=== PATIENT | female | born 1995 | race Caucasian/White ===

== ENCOUNTER → 2023-11-28 | Outpatient (CLI) | payer OTHER, SELFPAY ==
[2023-12-04 07:42] LABS: HPV Reflexed? NOT INDICATED
== END | disposition home or self-care (01) ==
LOC: LABSPEC 15:55
PROVIDERS: Referring Provider Registered Nurse; Visit Provider Registered Nurse
DX: Z12.4 Encounter for screening for malignant neoplasm of cervix (principal)
CPT/HCPCS: 88175; G0145

== ENCOUNTER → 2024-02-19 | Outpatient (CLI) | payer OTHER, SELFPAY ==
[2024-02-23 20:08] LABS: Chlamydia By Nucleic Acid AMP Negative (Negative); Gonococcus By Nucleic Acid AMP Negative (Negative)
== END | disposition home or self-care (01) ==
LOC: LABSPEC 16:40
PROVIDERS: Referring Provider Obstetrics & Gynecology; Visit Provider Obstetrics & Gynecology
DX: O26.899 Other specified pregnancy related conditions, unspecified trimester (principal); N89.8 Other specified noninflammatory disorders of vagina; O09.91 Supervision of high risk pregnancy, unspecified, first trimester; Z3A.00 Weeks of gestation of pregnancy not specified; O99.891 Other specified diseases and conditions complicating pregnancy
CPT/HCPCS: 87070; 87205; 87491; 87591

== ENCOUNTER → 2024-02-26 | Outpatient (CLI) | payer OTHER, SELFPAY ==
[2024-03-01 20:08] LABS: Chlamydia By Nucleic Acid AMP Negative (Negative); Gonococcus By Nucleic Acid AMP Negative (Negative)
== END | disposition home or self-care (01) ==
LOC: LABSPEC 13:33
PROVIDERS: Referring Provider Advanced Practice Midwife; Visit Provider Advanced Practice Midwife
DX: Z34.90 Encounter for supervision of normal pregnancy, unspecified, unspecified trimester (principal); Z3A.00 Weeks of gestation of pregnancy not specified
CPT/HCPCS: 87086; 87491; 87591

== ENCOUNTER → 2024-03-24 | Outpatient (CLI) | payer OTHER, SELFPAY ==
[2024-03-24 16:26] LABS: Absolute Lymphocyte Count 2.44 X10^3/uL (0.83-4.51); Absolute Neutrophil Count 7.9 X10^3/uL (2.0-7.7); Basophil# 0.02 X10^3/uL; Basophil% 0.2 % (0-1); Eosinophil# 0.09 X10^3/uL; Eosinophils% 0.8 % (0-5); Hematocrit 38.9 % (37-47); Hemoglobin 13.1 g/dL (12.0-15.0); Lymphocyte # 2.44 X10^3/ul (0.83-4.51); Lymphocyte % 22.1 % (19-41); Mean Corp Hgb Conc 33.7 g/dL (32-36); Mean Corpuscular Hgb 28.7 pg (27.0-32.0); Mean Corpuscular Volume 85.3 fL (81-99); Mean Platelet Vol. 10.3 fl (6.2-12.0); Monocyte# 0.57 X10^3/uL; Monocyte% 5.2 % (0-10); NRBC Flagged by Analyzer 0 % (0-5); Neutrophil # 7.86 X10^3/uL (2.7-7.7); Neutrophil % 71.2 % (47-70); Platelet Count 295 K/mm3 (150-450); RBC Distribution Width CV 12.9 % (11.6-14.6); Red Blood Count 4.56 M/mm3 (4.2-5.4)
[2024-03-24 17:14] LABS: HIV - WCH Non-Reactive (Nonreactive); Hepatitis B Surface Antigen Non-Reactive (Nonreactive); Hepatitis C Antibody Non-Reactive (Nonreactive); Rubella IgG Reactive (Nonreactive); Syphilis Antibodies Non-reactive
== END | disposition home or self-care (01) ==
LOC: BWCLAB 15:49
PROVIDERS: Advanced Practice Midwife; Referring Provider Obstetrics & Gynecology; Visit Provider Obstetrics & Gynecology
DX: O99.210 Obesity complicating pregnancy, unspecified trimester (principal)
CPT/HCPCS: 36415; 83036; 85025; 86703; 86762; 86780; 86803; 86850; 86900; 86901; 87340

== ENCOUNTER → 2024-06-08 | Outpatient (CLI) | payer BC, SELFPAY | END | disposition home or self-care (01) | LOC: LABSPEC 16:00 | PROVIDERS: Referring Provider Obstetrics & Gynecology; Visit Provider Obstetrics & Gynecology | DX: R35.0 Frequency of micturition (principal) | CPT/HCPCS: 87086 ==

== ENCOUNTER → 2024-07-06 | Outpatient (CLI) | payer BC, SELFPAY ==
[2024-07-06 17:05] LABS: Absolute Neutrophil Count 8.5 X10^3/uL (2.0-7.7); Basophil# 0.01 X10^3/uL; Basophil% 0.1 % (0-1); Eosinophil# 0.04 X10^3/uL; Eosinophils% 0.4 % (0-5); Hemoglobin 11.3 g/dL (12.0-15.0); Lymphocyte % 18.6 % (19-41); Mean Corp Hgb Conc 34.2 g/dL (32-36); Mean Corpuscular Hgb 29.3 pg (27.0-32.0); Mean Corpuscular Volume 85.5 fL (81-99); Monocyte# 0.62 X10^3/uL; Monocyte% 5.5 % (0-10); NRBC Flagged by Analyzer 0 % (0-5); Neutrophil # 8.49 X10^3/uL (2.7-7.7); Neutrophil % 74.9 % (47-70); Platelet Count 357 K/mm3 (150-450); RBC Distribution Width CV 12.8 % (11.6-14.6); RBC Distribution Width SD 39.8 fl (35.1-43.9); Red Blood Count 3.86 M/mm3 (4.2-5.4); White Blood Count 11.3 K/mm3 (4.4-11.0)
[2024-07-06 18:04] LABS: Syphilis Antibodies Nonreactive (Nonreactive)
[2024-07-06 18:29] LABS: Glucose Challenge Gest 1H 50g 127 mg/dL (70-140); HIV Nonreactive (Nonreactive)
== END | disposition home or self-care (01) ==
LOC: BWCLAB 15:28
PROVIDERS: Referring Provider Obstetrics & Gynecology; Visit Provider Obstetrics & Gynecology
DX: Z34.90 Encounter for supervision of normal pregnancy, unspecified, unspecified trimester (principal); Z13.1 Encounter for screening for diabetes mellitus
CPT/HCPCS: 36415; 82950; 85025; 86703; 86780

== ENCOUNTER 2024-08-19 14:21 | Outpatient (CLI) | payer BC, SELFPAY ==
[2024-08-19 14:39] LABS: Absolute Lymphocyte Count 2.54 X10^3/uL (0.83-4.51); Absolute Neutrophil Count 6.2 X10^3/uL (2.0-7.7); Basophil# 0.03 X10^3/uL; Basophil% 0.3 % (0-1); Eosinophil# 0.16 X10^3/uL; Eosinophils% 1.7 % (0-5); Hematocrit 34.2 % (37-47); Hemoglobin 11.3 g/dL (12.0-15.0); Lymphocyte # 2.54 X10^3/ul (0.83-4.51); Lymphocyte % 26.7 % (19-41); Mean Corpuscular Hgb 26.8 pg (27.0-32.0); Mean Platelet Vol. 10.1 fl (6.2-12.0); Monocyte# 0.48 X10^3/uL; NRBC Flagged by Analyzer 0 % (0-5); Neutrophil # 6.23 X10^3/uL (2.7-7.7); Neutrophil % 65.5 % (47-70); Platelet Count 359 K/mm3 (150-450); RBC Distribution Width CV 13.1 % (11.6-14.6); RBC Distribution Width SD 36.8 fl (35.1-43.9); Red Blood Count 4.22 M/mm3 (4.2-5.4); White Blood Count 9.5 K/mm3 (4.4-11.0)
[2024-08-19 15:15] VITALS: BP 134/77; PULSE 85; BMI 34.8
[2024-08-19 15:20] VITALS: RESP 16; TEMP 37
[2024-08-19] MEDS: Betamethasone/Betamethasone 30 MG/5 ML Vial 12 MG IM (15:24)
[2024-08-19] MEDS: Acetaminophen 500 MG Tablet 1000 MG PO (15:25)
[2024-08-19 15:30] VITALS: BP 132/78; PULSE 85
[2024-08-19 15:33] LABS: Protein, Urine (Random) 18.3 mg/dL (0.0-12.0); Protein:Creat Ratio 176 mg/g CRE (0-200)
[2024-08-19 15:34] LABS: ALB/GLOB Ratio 0.9 RATIO (0.9-2.4); AST(SGOT) 30 U/L (<=31); Alanine Aminotransfer ALT/SGPT 32 U/L (<=34); Alkaline Phosphatase 155 U/L (35-104); Anion Gap 12 (5-15); BUN 7 mg/dL (4-19); BUN/Creat Ratio 9.8 RATIO (10-20); Calcium,Total 8.7 mg/dL (7.6-11.0); Carbon Dioxide 19.3 mmol/L (21.0-32.0); Chloride 105 mmol/L (98-108); Creatinine, Serum 0.68 mg/dL (0.70-1.20); EST Glomerular Filtration Rate 121 (>60); Estimated Creatinine Clearance 144.11 ml/min (50-250); Globulin 3.3 g/dL (2.2-4.2); Glucose 102 mg/dL (70-99); Potassium 3.5 mmol/L (3.3-5.1); Protein, Total 6.3 g/dL (5.9-8.4); Sodium Level 136 mmol/L (133-145); Total Bilirubin 0.17 mg/dL (0.00-1.30)
[2024-08-19 15:45] VITALS: BP 123/73; PULSE 77
[2024-08-19 16:00] VITALS: BP 125/72; PULSE 85
--- NOTE | 2024-08-19 16:08 | OB.TRI.PN ---
Progress Notes Date of Service: 08/19/24 Progress Note: Patient presents for triage evaluation secondary to elevated bps FHT: 150 Moderate variability reactive no decelerations category I tracing [place]: no regular Contractions Assessment and plan: 33 weeks elevate dbps and headache- resolved with tylenol and bps repeat WNL and labs WNL,celestone given Reactive NST, reassuring maternal and status patient discharged to home to follow-up tomorrow for repea tsteroids. See problem list details for additional plan information. Laboratory Studies: Laboratory Tests 08/19/24 08/19/24 Range/Units 14:33 14:22 WBC 9.5 (4.4-11.0) K/mm3 RBC 4.22 (4.2-5.4) M/mm3 Hgb 11.3 L (12.0-15.0) g/dL Hct 34.2 L (37-47) % MCV 81.0 (81-99) fL MCH 26.8 L (27.0-32.0) pg MCHC 33.0 (32-36) g/dL RDW Std Deviation 36.8 (35.1-43.9) fl RDW Coeff of [place] 13.1 (11.6-14.6) % Plt Count 359 (150-450) K/mm3 MPV 10.1 (6.2-12.0) fl Immature Gran % (Auto) 0.800 (0.0-0.9) % Neut % (Auto) 65.5 (47-70) % Lymph % (Auto) 26.7 (19-41) % [place] % (Auto) 5.0 (0-10) % Eos % (Auto) 1.7 (0-5) % Baso % (Auto) 0.3 (0-1) % Absolute Neuts (auto) 6.2 (2.0-7.7) X10^3/uL Absolute Lymphs (auto) 2.54 (0.83-4.51) X10^3/uL Nucleated RBC % 0 (0-5) % Sodium 136 (133-145) mmol/L Potassium 3.5 (3.3-5.1) mmol/L Chloride 105 (98-108) mmol/L Carbon Dioxide 19.3 L (21.0-32.0) mmol/L Anion Gap 12 (5-15) BUN 7 (4-19) mg/dL Creatinine 0.68 L (0.70-1.20) mg/dL Estim Creat Clear Calc 144.11 (50-250) ml/min Est GFR (MDRD) Non-Af 121 (>60) BUN/Creatinine Ratio 9.8 L (10-20) RATIO Glucose 102 H (70-99) mg/dL Calcium 8.7 (7.6-11.0) mg/dL Total Bilirubin 0.17 (0.00-1.30) mg/dL AST 30 (<=31) U/L ALT 32 (<=34) U/L Alkaline Phosphatase 155 H (35-104) U/L Total Protein 6.3 (5.9-8.4) g/dL Albumin 3.0 L (3.5-5.0) g/dL Globulin 3.3 (2.2-4.2) g/dL Albumin/Globulin Ratio 0.9 (0.9-2.4) RATIO U Random Total Protein 18.3 H (0.0-12.0) mg/dL Urine Creatinine 104.00 (28.00-217.00) mg/dL Protein/Creatinin Ratio 176 (0-200) mg/g CRE Charges/Coding Procedures Urinary/Genital 52xxx-59xxx: [id number] non-stress test Interp Assessment & Plan (1) Elevated blood pressure affecting in third trimester, antepartum: COMMENT: celestone given, labs WNL, repeat bps normal in triage headache resolved. repeat celestone 08/20 will be given.
== END 2024-08-19 16:18 | disposition home or self-care (01) ==
LOC: BWCLAB 14:26 → WPOUT 14:57 → WP 14:58
PROVIDERS: Referring Provider Nurse Practitioner Women's Health; Visit Provider Obstetrics & Gynecology
DX: O26.893 Other specified pregnancy related conditions, third trimester (principal); R03.0 Elevated blood-pressure reading, without diagnosis of hypertension; R51.9 Headache, unspecified; Z3A.33 33 weeks gestation of pregnancy
CPT/HCPCS: 36415; 59025; 59050; 80053; 82570; 84156; 85025; 99221; G0378; J0702

== ENCOUNTER 2024-08-20 15:20 | Outpatient (CLI) | payer BC, SELFPAY ==
[2024-08-20 15:31] VITALS: BMI 35.2
[2024-08-20 15:45] VITALS: BP 126/73; PULSE 85
[2024-08-20] MEDS: Betamethasone/Betamethasone 30 MG/5 ML Vial 12 MG IM (15:46)
--- NOTE | 2024-08-20 20:15 | OB.TRI.HP_ITS ---
HPI - General General Date of Admission: 08/20/24 Date of Service: 09/19/24 HPI Narrative TARAN RUBIO, is a 29 y/o @ 33 weeks 5 days who presents to L&D for a celestone injection only. NST was performed yesterday. This is being given for headache and suspicion for possible pih vs pre-e. BP today is normal. Maternal Data Information MARIIA Calculator Estimated Delivery Date Method Current WG Current Estimate 10/03/24 Ultrasound #1 35w 4d Other Estimates 09/24/24 LMP (Certain) 36w 6d PFSH PFSH Medical History Family planning counseling Home Medications ?Medication ?Instructions ?Recorded ?Last Taken ?Type docosahexaenoic acid 200 mg 1 mg PO DAILY 02/19/24 11:30 History capsule ( DHA) 1 mg doxylamine succinate 25 mg tablet 25 mg PO QHS PRN sle ep 02/19/24 08/18/24 23:00 History (Unisom (doxylamine)) 25 mg famotidine 20 mg tablet (Pepcid) 20 mg PO DAILY #30 ta bs 06/08/24 08/19/24 09:00 Rx 20 mg promethazine 12.5 mg tablet 12.5 mg PO Q6H PRN nausea and 07/06/24 08/19/24 09:00 Rx vomiting #90 tabs 12.5 mg Allergy/AdvReac Type Severity Reaction Status Date / Time latex Allergy Intermediate Rash Verified 08/19/24 15:16 oxycodone (From Percocet) Allergy Mild Vomiting Verified 08/19/24 15:16 Family History Grandmother Myocardial infarction Diabetes Grandfather Diabetes Surgical History Hx of wisdom tooth extraction Social History adopted: No household members: spouse current occupational status: unemployed current occupational exposures/hazards: No pets and animals: Yes pets and animals: dog(s), guinea pig(s) and other details: bunny history of recent travel: Yes ([place] - Dec 2023, [place] - January 2024) out of state: Yes out of country: No sexually active: Yes Smoking Status: Never smoker alcohol intake: current alcohol intake frequency: holidays/special occasions only details: Not while substance use type: does not use well-balanced diet: daily or most days caffeine: Yes Type: coffee Number of servings: 1 eating out: 1-3 times/week during the past year weight has: increased > 10 lbs what type of physical activity do you participate in: none omar/moravian: Confucianism seatbelt use: always do you feel safe at home: Yes additional social history: : Raul Winters: Floater History 1 Elective abortions Hx Para 0 Spontaneous abortions Hx # Term Pregnancies Ectopic pregnancies Hx # Pregnancies Multiple births # of living children 0 Visit Details Expected Delivery Route/Plan Labor Preferences- CB/BF classes: enc labor support person: Raul labor intervention preferences: [] pain management options preferred: [] cut cord/dad catch: [] : yes PP control planned: [] discussed possible routes of delivery and associated risks: [] special requests: [] Plans Covid status: [] Flu vaccine: [] Tdap vaccine: [] Rhogam: [] LARC form signed: yes Problem list reviewed and updated with the most current plan of care details and appropriate orders placed. Relevant counseling for the gestational age provided. Continue routine care and follow up unless otherwise noted in visit notes/problem list details OB Flowsheet Initial Weight: Not Recorded Date -?-?-?-?-?-?-?-?-?-?-?-?- EGA Weight BP Urine Prot -?-?-?-?-?-?-?-?-?-?-?-?- Glucose FHR FuHt Pres Dilation -?-?-?-?-?-?-?-?-?-?-?-?- Effaced St Visit Note 02/26/24 -?-?-?-?-?-?-?-?-?-?-?-?- 8w 4d 192 lb 124/77 -?-?-?-?-?-?-?-?-?-?-?-?- 175 -?-?-?-?-?-?-?-?-?-?-?-?- KW- CRL not cons with dates. MARIIA changed. undecided on NIPT 03/24/24 -?-?-?-?-?-?-?-?-?-?-?-?- 12w 3d 192 lb 8 oz 121/79 Nega tive -?-?-?-?-?-?-?-?-?-?-?-?- Negative 165 -?-?-?-?-?-?-?-?-?-?-?-?- JV- no lof, vagi nal bleeding, or cramping. no complaints other than gas and some residual nausea. no vomiting x 2 days. new ob labs today. declines NIPT. 04/15/24 -?-?-?-?-?-?-?-?-?-?-?-?- 15w 4d 193 lb 4 oz 115/72 Nega tive -?-?-?-?-?-?-?-?-?-?-?-?- Negative 155 -?-?-?-?-?-?-?-?--?-?-?-?- JV- still some g as and vomiting. recommend pepcid complete twice a day + gas x. anatomy scan JV- still some gas and vomit ing. recommend pepcid complete twice a day + gas x. anatomy scan ordered 05/13/24 -?-?-?-?-?-?-?-?-?-?-?-?- 19w 4d 203 lb 116/77 Negative -?-?-?-?-?-?-?-?-?-?-?-?- Negative 145 -?-?-?-?-?-?--?-?-?-?-?-?- KW- no vb/crampi ng. good fm. was in [facility] for headaches. Having a BOY! has US today. 06/08/24 -?-?-?-?-?-?-?-?-?-?-?-?- 23w 2d 207 lb 116/72 Negative -?-?-?-?-?-?-?-?-?-?-?-?- Negative 150 23 0 -?-?-?-?-?-?-?-?-?-?-?-?- SM- has some occ asional cramping, nothing regualr SM- has some occasional cram ping, nothing regualr. 3.2 cm cervical length. taking pepcid for heartburn, ordered script. SM- has some occasional cram ping, nothing regualr. 3.2 cm cervical length. taking pepcid for heartburn, ordered script. discussed increased anxiety symptoms, significant, has aditi on prozc in the past, will restart 07/06/24 -?-?-?-?-?-?-?-?-?-?-?-?- 27w 2d 208 lb 136/80 Negative -?-?-?-?-?-?-?-?-?-?-?-?- Negative 150 28 -?-?-?-?-?-?-?-?-?-?-?-?- SM- no vb lof go od fm no reuglar ctx questions answered 07/20/24 -?-?-?-?-?-?-?-?-?-?-?-?- 29w 2d 213 lb 8 oz 125/83 Nega tive -?-?-?-?-?-?-?-?-?-?-?-?- Negative 150 30 -?-?-?-?-?-?-?-?-?-?-?-?- KW- no vb/lof/ct x. good fm. [facility] -?-?-?-?-?-?-?-?-?-?-?-?- 31w 4d 218 lb 4 oz 130/82 Nega tive -?-?-?-?-?-?-?-?-?-?-?-?- Negative 152 31 -?-?-?-?-?-?-?-?-?-?-?-?- MH-No VB, LOF. G ood FM. Left hand numbness/enc wrist splint. Tdap 08/19/24 -?-?-?-?-?-?-?-?-?-?-?-?- 33w 4d 215 lb 130/92 Negative -?-?-?-?-?-?-?-?-?-?-?-?- Negative 143 33 -?-?-?-?-?-?-?-?-?-?-?-?- MH-No VB, LOF. G ood FM. Has headache today, some blurring of vision. -No VB, LOF. Good FM. Has headache today, some blurring of vision. To Assessment & Plan (1) Elevated blood pressure affecting in third trimester, antepartum: COMMENT: celestone given, labs WNL, repeat bps normal in triage headache resolved. repeat celestone 08/20 will be given. (2) Migraine without aura: QUALIFIERS: Status migrainosus presence: without status migrainosus Intractability: not intractable Qualified Code(s): G43.009 - Migraine without aura, not intractable, without status migrainosus (3) Obesity affecting : QUALIFIERS: Trimester: third trimester Obesity type affecting : unspecified obesity Qualified Code(s): O99.213 - Obesity complicating , third trimester COMMENT: BMI 30.7 - HgB A1C ordered with NOB labs (4) Supervision of normal : QUALIFIERS: Normal : normal first Trimester: third trimester Qualified Code(s): Z34.03 - Encounter for supervision of normal first , third trimester COMMENT: PRR, , MARIIA 10/03/24, : Raul (5) : QUALIFIERS: Weeks of gestation: 33 weeks Qualified Code(s): Z3A.33 - 33 weeks gestation of COMMENT: Discuss genetic/carrier testing, normal anatomy (6) Anxiety and depression: COMMENT: Stopped taking meds about 6mo ago, feeling increased anxiety since becoming . restart prozac (7) Vaginal bleeding affecting early : PLAN: Plan 2nd dose of celestone today then dc to home with close out patient follow up.
== END 2024-08-20 15:50 | disposition home or self-care (01) ==
LOC: WPOUT 15:26 → WP 15:28
PROVIDERS: Referring Provider Registered Nurse; Visit Provider Registered Nurse
DX: O46.93 Antepartum hemorrhage, unspecified, third trimester (principal); O26.893 Other specified pregnancy related conditions, third trimester; R03.0 Elevated blood-pressure reading, without diagnosis of hypertension; Z3A.33 33 weeks gestation of pregnancy; Z79.899 Other long term (current) drug therapy; O99.353 Diseases of the nervous system complicating pregnancy, third trimester; G43.909 Migraine, unspecified, not intractable, without status migrainosus; O99.213 Obesity complicating pregnancy, third trimester; E66.9 Obesity, unspecified
CPT/HCPCS: 96372; 99221; G0378; J0702

== ENCOUNTER → 2024-09-09 | Outpatient (CLI) | payer BC, SELFPAY ==
[2024-09-09 16:05] LABS: Absolute Lymphocyte Count 2.58 X10^3/uL (0.83-4.51); Absolute Neutrophil Count 7.9 X10^3/uL (2.0-7.7); Basophil# 0.03 X10^3/uL; Basophil% 0.3 % (0-1); Eosinophil# 0.29 X10^3/uL; Eosinophils% 2.5 % (0-5); Hematocrit 33.3 % (37-47); Hemoglobin 10.8 g/dL (12.0-15.0); Lymphocyte # 2.58 X10^3/ul (0.83-4.51); Lymphocyte % 22.2 % (19-41); Mean Corp Hgb Conc 32.4 g/dL (32-36); Mean Corpuscular Hgb 25.7 pg (27.0-32.0); Mean Corpuscular Volume 79.3 fL (81-99); Mean Platelet Vol. 10.7 fl (6.2-12.0); Monocyte# 0.76 X10^3/uL; Monocyte% 6.5 % (0-10); NRBC Flagged by Analyzer 0.3 % (0-5); Neutrophil # 7.85 X10^3/uL (2.7-7.7); Neutrophil % 67.6 % (47-70); Platelet Count 318 K/mm3 (150-450); RBC Distribution Width CV 13.9 % (11.6-14.6); RBC Distribution Width SD 39.3 fl (35.1-43.9); White Blood Count 11.6 K/mm3 (4.4-11.0)
[2024-09-09 16:35] LABS: Protein:Creat Ratio 296 mg/g CRE (0-200)
[2024-09-09 16:38] LABS: Uric Acid 4.6 mg/dL (2.6-6.0)
[2024-09-09 16:39] LABS: ALB/GLOB Ratio 1.1 RATIO (0.9-2.4); AST(SGOT) 24 U/L (<=31); Alanine Aminotransfer ALT/SGPT 16 U/L (<=34); Albumin, Serum 3.3 g/dL (3.5-5.0); Alkaline Phosphatase 191 U/L (35-104); Anion Gap 12 (5-15); BUN 7 mg/dL (4-19); BUN/Creat Ratio 11.5 RATIO (10-20); Calcium,Total 9.2 mg/dL (7.6-11.0); Carbon Dioxide 17.7 mmol/L (21.0-32.0); Chloride 106 mmol/L (98-108); Creatinine, Serum 0.59 mg/dL (0.70-1.20); EST Glomerular Filtration Rate 125 (>60); Globulin 3.1 g/dL (2.2-4.2); Glucose 108 mg/dL (70-99); Potassium 4.3 mmol/L (3.3-5.1); Protein, Total 6.4 g/dL (5.9-8.4); Sodium Level 135 mmol/L (133-145); Total Bilirubin < 0.15 mg/dL (0.00-1.30)
== END | disposition home or self-care (01) ==
PROVIDERS: Referring Provider Advanced Practice Midwife; Visit Provider Advanced Practice Midwife
DX: O16.3 Unspecified maternal hypertension, third trimester (principal); Z3A.36 36 weeks gestation of pregnancy
CPT/HCPCS: 36415; 80053; 82570; 84156; 84550; 85025; 87081

== ENCOUNTER → 2024-09-11 | Outpatient (CLI) | payer BC, SELFPAY ==
[2024-09-11 11:42] LABS: Creatinine, Serum 0.62 mg/dL (0.70-1.20); EST Glomerular Filtration Rate 123 (>60)
[2024-09-11 11:43] LABS: Creatinine Serum Creat 0.6 mg/dL (0.6-1.0)
[2024-09-11 11:59] LABS: Urine Protein (24 Hour) 15.8 mg/dL (<11.9)
[2024-09-11 12:02] LABS: 24 Hour Urine Protein 426.6 mg/24HR (<150 MG/24HR); 24HR. Urine Creatinine 1630.8 mg/24 hr (740.0-1540.0); Creatinine Clearance 183 ml/min (100-200)
[2024-09-11 12:03] LABS: 24HR. UA Prot. Total Volume 2700 mL
== END | disposition home or self-care (01) ==
PROVIDERS: PCP Family Medicine; Referring Provider Obstetrics & Gynecology; Visit Provider Obstetrics & Gynecology
DX: O16.3 Unspecified maternal hypertension, third trimester (principal); Z3A.00 Weeks of gestation of pregnancy not specified
CPT/HCPCS: 36415; 82565; 82570; 82575; 84156

== ENCOUNTER 2024-09-14 16:10 | Inpatient (IN) | payer BC, SELFPAY ==
[2024-08-20 15:45] VITALS: RESP 16; TEMP 36.6
[2024-09-14] VITALS (17 sets, daily range): BP systolic 127–146; BP diastolic 75–88; PULSE 76–104; RESP 16; TEMP 36.7–37.4; O2SAT 97–98; BMI 36.1
[2024-09-14 14:10] LABS: Protein, Urine (Random) 23.3 mg/dL (0.0-12.0); Protein:Creat Ratio 274 mg/g CRE (0-200)
[2024-09-14 14:52] LABS: Hematocrit 32.3 % (37-47); Hemoglobin 10.2 g/dL (12.0-15.0); Mean Corp Hgb Conc 31.6 g/dL (32-36); Mean Corpuscular Hgb 25.2 pg (27.0-32.0); Mean Platelet Vol. 10.6 fl (6.2-12.0); Platelet Count 335 K/mm3 (150-450); RBC Distribution Width CV 14.1 % (11.6-14.6); RBC Distribution Width SD 40.5 fl (35.1-43.9); Red Blood Count 4.04 M/mm3 (4.2-5.4); White Blood Count 12.6 K/mm3 (4.4-11.0)
[2024-09-14 15:27] LABS: AST(SGOT) 23 U/L (<=31); Alanine Aminotransfer ALT/SGPT 17 U/L (<=34); Creatinine, Serum 0.59 mg/dL (0.70-1.20); EST Glomerular Filtration Rate 125 (>60); Estimated Creatinine Clearance 169.29 ml/min (50-250); Uric Acid 4.8 mg/dL (2.6-6.0)
--- NOTE | 2024-09-14 16:26 | HP.PCM.OB_ITS ---
HPI - General General Date of Admission: 09/14/24 Date of Service: 09/14/24 HPI Narrative TARAN RUBIO, is a 29 F 37.2 weeks who presents to unit after BP check in office. Has been having headache for the last week and mildly elevated BPs today. Pre e labs normal but with neurologic sx decision made for induction Maternal Data Information MARIIA Calculator Estimated Delivery Date Method Current WG Current Estimate 10/03/24 Ultrasound #1 37w 2d Other Estimates 09/24/24 LMP (Certain) 38w 4d Final MARIIA: 10/03/24 Final MARIIA Source: US >20 weeks Gestational age: 37.2 PFSH PFSH Medical History Family planning counseling Home Medications ?Medication ?Instructions ?Recorded ?Last Taken ?Type docosahexaenoic acid 200 mg 1 mg PO DAILY 02/19/24 08:00 History capsule ( DHA) doxylamine succinate 25 mg tablet 25 mg PO QHS PRN sle ep 02/19/24 09/13/24 21:00 History (Unisom (doxylamine)) promethazine 12.5 mg tablet 12.5 mg PO Q6H PRN nausea and 07/06/24 09/14/24 08:00 Rx vomiting #90 tabs famotidine 20 mg tablet (Pepcid) 20 mg PO BID #60 tabs 09/02/24 09/14/24 08:00 Rx Allergy/AdvReac Type Severity Reaction Status Date / Time latex Allergy Intermediate Rash Verified 09/14/24 14:30 oxycodone (From Percocet) Allergy Mild Vomiting Verified 09/14/24 14:30 Family History Grandmother Myocardial infarction Diabetes Grandfather Diabetes Surgical History Hx of wisdom tooth extraction Social History adopted: No household members: spouse current occupational status: unemployed current occupational exposures/hazards: No pets and animals: Yes pets and animals: dog(s), guinea pig(s) and other details: bunny history of recent travel: Yes ([place] - Dec 2023, [place] - January 2024) out of state: Yes out of country: No sexually active: Yes Smoking Status: Never smoker alcohol intake: current alcohol intake frequency: holidays/special occasions only details: Not while substance use type: does not use well-balanced diet: daily or most days caffeine: Yes Type: coffee Number of servings: 1 eating out: 1-3 times/week during the past year weight has: increased > 10 lbs what type of physical activity do you participate in: none omar/nondenominational: Cheondoism seatbelt use: always do you feel safe at home: Yes additional social history: : Raul Winters: Floater History 1 Elective abortions Hx Para 0 Spontaneous abortions Hx # Term Pregnancies Ectopic pregnancies Hx # Pregnancies Multiple births # of living children 0 Visit Details Expected Delivery Route/Plan Labor Preferences- CB/BF classes: enc labor support person: Raul labor intervention preferences: [] pain management options preferred: [] cut cord/dad catch: [] : yes PP control planned: [] discussed possible routes of delivery and associated risks: [] special requests: [] Plans Covid status: [] Flu vaccine: [] Tdap vaccine: [] Rhogam: [] LARC form signed: yes Problem list reviewed and updated with the most current plan of care details and appropriate orders placed. Relevant counseling for the gestational age provided. Continue routine care and follow up unless otherwise noted in visit notes/problem list details OB Flowsheet Initial Weight: Not Recorded Date -?-?-?-?-?-?-?-?-?-?-?-?- EGA Weight BP Urine Prot -?-?-?-?-?-?-?-?-?-?-?-?- Glucose FHR FuHt Pres Dilation -?-?-?-?-?-?-?-?-?-?-?-?- Effaced St Visit Note 02/26/24 -?-?-?-?-?-?-?-?-?-?-?-?- 8w 4d 192 lb 124/77 -?-?-?-?-?-?-?-?-?-?-?-?- 175 -?-?-?-?-?-?-?-?-?-?-?-?- KW- CRL not cons with dates. MARIIA changed. undecided on NIPT 03/24/24 -?-?-?-?-?-?-?-?-?-?-?-?- 12w 3d 192 lb 8 oz 121/79 Nega tive -?-?-?-?-?-?-?-?-?-?-?-?- Negative 165 -?-?-?-?-?-?-?-?-?-?-?-?- JV- no lof, vagi nal bleeding, or cramping. no complaints other than gas and some residual nausea. no vomiting x 2 days. new ob labs today. declines NIPT. 04/15/24 -?-?-?-?-?-?-?-?-?-?-?-?- 15w 4d 193 lb 4 oz 115/72 Nega tive -?-?-?-?-?-?-?-?-?-?-?-?- Negative 155 -?-?-?-?-?-?-?-?-?-?-?-?- JV- still some g as and vomiting. recommend pepcid complete twice a day + gas x. anatomy scan JV- still some gas and vomit ing. recommend pepcid complete twice a day + gas x. anatomy scan ordered 05/13/24 -?-?-?-?-?-?-?-?-?-?-?-?- 19w 4d 203 lb 116/77 Negative -?-?-?-?-?-?-?-?-?-?-?-?- Negative 145 -?-?-?-?-?-?-?-?-?-?-?-?- KW- no vb/crampi ng. good fm. was in [facility] for headaches. Having a BOY! has US today. 06/08/24 -?-?-?-?-?-?-?-?-?-?-?-?- 23w 2d 207 lb 116/72 Negative -?-?-?-?-?-?-?-?-?-?-?-?- Negative 150 23 0 -?-?-?-?-?-?-?-?-?-?-?-?- SM- has some occ asional cramping, nothing regualr SM- has some occasional cram ping, nothing regualr. 3.2 cm cervical length. taking pepcid for heartburn, ordered script. SM- has some occasional cram ping, nothing regualr. 3.2 cm cervical length. taking pepcid for heartburn, ordered script. discussed increased anxiety symptoms, significant, has aditi on prozc in the past, will restart 07/06/24 -?-?-?-?-?-?-?-?-?-?-?-?- 27w 2d 208 lb 136/80 Negative -?-?-?-?-?-?-?-?-?-?-?-?- Negative 150 28 -?-?-?-?-?-?-?-?-?-?-?-?- SM- no vb lof go od fm no reuglar ctx questions answered 07/20/24 -?-?-?-?-?-?-?-?-?-?-?-?- 29w 2d 213 lb 8 oz 125/83 Nega tive -?-?-?-?-?-?-?-?-?-?-?-?- Negative 150 30 -?-?-?-?-?-?-?-?-?-?-?-?- KW- no vb/lof/ct x. good fm. considering Tdap. larc today 08/05/24 -?-?-?-?-?-?-?-?-?-?-?-?- 31w 4d 218 lb 4 oz 130/82 Nega tive -?-?-?-?-?-?-?-?-?-?-?-?- Negative 152 31 -?-?-?-?-?-?-?-?-?-?-?-?- MH-No VB, LOF. G ood FM. Left hand numbness/enc wrist splint. Tdap 08/19/24 -?-?-?-?-?-?-?-?-?-?-?-?- 33w 4d 215 lb 130/92 Negative -?-?-?-?-?-?-?-?-?-?-?-?- Negative 143 33 -?-?-?-?-?-?-?-?-?-?-?-?- MH-No VB, LOF. G ood FM. Has headache today, some blurring of vision. MH-No VB, LOF. Good FM. Has headache today, some blurring of vision. To WP 09/02/24 -?-?-?-?-?-?-?-?-?-?-?-?- 35w 4d 219 lb 134/86 Trace -?-?-?-?-?-?-?-?-?-?-?-?- Negative 151 34.5 Cephalic -?--?-?-?-?-?-?-?-?-?-?-?- JV- no lof, vagi nal bleeding, or dec fm. on and off cramping. needs new pepcid script sent to pharmacy. 09/09/24 -?-?-?-?-?-?-?-?-?-?-?-?- 36w 4d 221 lb 8 oz 156/88 126/85 Negative -?-?-?-?-?-?-?-?-?-?-?-?- Negative 160 37 Cephalic 3 .5 -?-?-?-?-?-?-?-?-?-?-?-?- 60 -1 KW- no vb/ lof/ctx. good fm. GBS today. feeling very anxious today. KW- no vb/lof/ctx. good fm. GBS today. feeling very anxious today. stat labs for elevated BP NST FHR Rate Baby A Baseline: 150 Variability:: Moderate Accelerations:: 15 x 15 Decelerations:: None NST Reactive:: Yes FHR Category:: Category I Uterine Activity:: irregular ROS Constitutional Constitutional: Denies change in weight, fatigue, fever(s), headache(s), poor appetite or weakness Eyes Eyes: Denies blurry vision, change in vision, floaters, seeing flashes or spots in vision ENT HEENT: Denies dizziness, headache(s), loss taste/smell or sore throat Cardiovascular Cardiovascular: Denies chest pain, dizziness, dyspnea, irregular heart rhythm, lightheadedness, palpitations or rapid heart rate Respiratory/Chest Respiratory/Chest: Denies change in mental status, chest tightness, cough, dyspnea or breast pain Gastrointestinal Gastrointestinal: Denies anorexia, chewing difficulty, constipation, diarrhea or weight changes Genitourinary Genitourinary: Denies difficulty urinating, dysuria, flank pain, genital pain, urinary frequency or urinary urgency Musculoskeletal Musculoskeletal: Denies back pain, difficulty walking, extremity pain, joint pain, muscle cramps or muscle weakness Integumentary Integumentary: Denies lesions or unusual bruising Neurologic Neurologic: Denies abnormal movements, abnormal speech, dizziness, numbness, seizure-like activity, syncope or weakness Psychiatric Psychiatric: Denies behavioral changes, change in appetite, confusion, depression, homicidal ideation, suicidal ideation or suicidal thoughts Endocrine Endocrinology: Denies excessive sweating, polydipsia or polyuria Hematologic/Lymphatic Hematologic/Lymphatic: Denies anemia Allergic/Immunologic Allergic/Immunologic: Denies itchy eyes, lip swelling, throat swelling, tongue swelling or wheezing Vital Signs Vital Signs Vital Signs: 09/14/24 14:29 09/14/24 14:29 09/14/24 14:29 Pulse Rate 95 Respiratory Rate 16 Blood Pressure 140/85 H BP Systolic 140 BP Diastolic 85 Pulse Ox 09/14/24 14:29 09/14/24 14:44 09/14/24 14:44 Pulse Rate 90 Respiratory Rate Blood Pressure 131/79 H BP Systolic 131 BP Diastolic 79 Pulse Ox 98 09/14/24 15:01 09/14/24 15:01 09/14/24 15:15 Pulse Rate 96 Respiratory Rate Blood Pressure 132/75 H 139/83 H BP Systolic 132 139 BP Diastolic 75 83 Pulse Ox 09/14/24 15:15 09/14/24 15:30 09/14/24 15:30 Pulse Rate 94 91 Respiratory Rate Blood Pressure 134/80 H BP Systolic 134 BP Diastolic 80 Pulse Ox 09/14/24 15:45 09/14/24 15:45 09/14/24 16:00 Pulse Rate 86 Respiratory Rate Blood Pressure 137/84 H 140/83 H BP Systolic 137 140 BP Diastolic 84 83 Pulse Ox 09/14/24 16:00 Pulse Rate 85 Respiratory Rate Blood Pressure BP Systolic BP Diastolic Pulse Ox Weight Weight: 224 lb Body Mass Index (BMI) 36.1 Physical Exam Const alert, oriented x3 and no apparent distress General Appearance: cooperative Orientation / Consciousness: awake HEENT normocephalic Neck full ROM Lymph Lymphatic: no lymphadenopathy noted Chest inspection of chest normal Resp normal respiratory effort and normal air movement Effort and Inspection: able to speak in complete sentences and symmetric chest movement GI soft to palpation and non-tender Inspection: gravid Palpation: soft; Negative for tender external exam normal Manual OB Exam: dilated 4, effaced 60 and station -2 Back/Spine normal to inspection Extremity normal to inspection and full ROM Skin no rashes or lesions noted Psych mental status grossly normal Appearance: grossly normal Speech: normal speech Labs Labs Labs: Blood Type O POSITIVE Antibody Screen NEGATIVE Hct 32.3 % (37-47) L Hgb 10.2 g/dL (12.0-15.0) L Syphilis Total Ab Nonreactive (Nonreactive) Rubella IgG Antibody Reactive (Nonreactive) Hep Bs Antigen Non-Reactive (Nonreactive) Hepatitis C Antibody Non-Reactive (Nonreactive) Chlamydia DNA ([facility]) Negative (Negative) N.gonorrhoeae DNA ([facility]) Negative (Negative) HIV 1&2 Antibody Nonreactive (Nonreactive) Glucose 1 Hr 50 gm 127 mg/dL (70-140) Assessment & Plan (1) Encounter for induction of labor: COMMENT: Pre eclampsia PLAN: Patient presents IOL, plan management for with pitocin/AROM. Pain management: plans epidural. GBS negative. Management of any complications: see list I have reviewed the [facility] and made any clinically relevant updates Dr Mata aware of assessment, plan and admission. agrees with above (2) Proteinuria affecting : COMMENT: wkly NST & Pre e labs, growth US, home BP monitoring, (3) Elevated blood pressure affecting in third trimester, antepartum: COMMENT: celestone given, labs WNL, repeat bps normal in triage headache resolved. repeat celestone 08/20 will be given. (4) Migraine without aura: QUALIFIERS: Status migrainosus presence: without status migrainosus Intractability: not intractable Qualified Code(s): G43.009 - Migraine without aura, not intractable, without status migrainosus (5) Obesity affecting : QUALIFIERS: Trimester: third trimester Obesity type affecting : unspecified obesity Qualified Code(s): O99.213 - Obesity complicating , third trimester COMMENT: BMI 30.7 - HgB A1C ordered with NOB labs (6) Supervision of normal : QUALIFIERS: Normal : normal first Trimester: third trimester Qualified Code(s): Z34.03 - Encounter for supervision of normal first , third trimester COMMENT: PRR, , MARIIA 10/03/24, : Raul (7) : QUALIFIERS: Weeks of gestation: 36 weeks Qualified Code(s): Z3A.36 - 36 weeks gestation of COMMENT: GBS neg, Discuss genetic/carrier testing, normal anatomy (8) Anxiety and depression: COMMENT: Stopped taking meds about 6mo ago, feeling increased anxiety since becoming . restart prozac (9) Vaginal bleeding affecting early : Charges/Coding Multi Select Codes Urinary/Genital Urinary/Genital CPT Codes: No Charge
[2024-09-14] MEDS: Lactated Ringers 1,000 ML 50 ML IV (17:25)
[2024-09-14 18:18] LABS: Syphilis Antibodies Nonreactive (Nonreactive)
[2024-09-14] MEDS: Oxytocin 15 Units/NS 250ml 15 UNITS/250 ML IV.SOLN 2 UNITS IV (19:56)
[2024-09-14] MEDS: 0.9% Saline Lock 10 ML Syringe IV (20:05)
[2024-09-14] MEDS: Ondansetron 4 MG/2 ML Vial IV (20:06)
[2024-09-14] MEDS: LACTATED RINGERS 500 ML 999 ML IV (22:01)
[2024-09-14] MEDS: Mag Hydrox/Al Hydrox/Simeth 30 ML UDC PO (23:04)
[2024-09-15] VITALS (39 sets, daily range): BP systolic 115–142; BP diastolic 65–86; PULSE 72–107; RESP 13–18; TEMP 36.4–37.5; O2SAT 96–100
[2024-09-15] MEDS: Ondansetron 4 MG/2 ML Vial IV ×2 (00:55→06:15)
[2024-09-15] MEDS: 0.9% Saline Lock 10 ML Syringe IV ×3 (00:55→06:15)
[2024-09-15] MEDS: proCHLORPERazine 10 MG/2 ML Vial IV (03:20)
[2024-09-15] MEDS: LACTATED RINGERS 500 ML 999 ML IV (06:32)
[2024-09-15] MEDS: fentaNYL-bupivacaine (epidural) 100 ML BAG EPIDURAL ×2 (07:16→12:22)
--- NOTE | 2024-09-15 07:58 | PCM.PN.BLA ---
Progress Note patient is resting well with epidural. She consents to AROM. current tracing: FHT: Moderate variability reactive no decelerations category I tracing [place]: q 2-4 min Contractions cx: 6/80/-1, blood tinged fluid present. A/P: PIH with a headache without proteinuria continue pitocin
[2024-09-15] MEDS: Lactated Ringers 1,000 ML 200 ML IV (08:24)
--- NOTE | 2024-09-15 12:55 | EX.PCM.OBVAG ---
Assessment & Plan (1) Encounter for induction of labor: COMMENT: Pre eclampsia (2) Proteinuria affecting : COMMENT: wkly NST & Pre e labs, growth US, home BP monitoring, (3) Elevated blood pressure affecting in third trimester, antepartum: COMMENT: celestone given, labs WNL, repeat bps normal in triage headache resolved. repeat celestone 08/20 will be given. (4) Migraine without aura: QUALIFIERS: Status migrainosus presence: without status migrainosus Intractability: not intractable Qualified Code(s): G43.009 - Migraine without aura, not intractable, without status migrainosus (5) Obesity affecting : QUALIFIERS: Trimester: third trimester Obesity type affecting : unspecified obesity Qualified Code(s): O99.213 - Obesity complicating , third trimester COMMENT: BMI 30.7 - HgB A1C ordered with NOB labs (6) Supervision of normal : QUALIFIERS: Normal : normal first Trimester: third trimester Qualified Code(s): Z34.03 - Encounter for supervision of normal first , third trimester COMMENT: PRR, , MARIIA 10/03/24, : Raul (7) : QUALIFIERS: Weeks of gestation: 36 weeks Qualified Code(s): Z3A.36 - 36 weeks gestation of COMMENT: GBS neg, Discuss genetic/carrier testing, normal anatomy (8) Anxiety and depression: COMMENT: Stopped taking meds about 6mo ago, feeling increased anxiety since becoming . restart prozac (9) Vaginal bleeding affecting early : Maternal Data Information MARIIA Calculator Estimated Delivery Date Method Current WG Current Estimate 10/03/24 Ultrasound #1 37w 3d Other Estimates 09/24/24 LMP (Certain) 38w 5d Final MARIIA: 10/03/24 Gestational age: 37 weeks 3 days Vaginal Delivery Maternal Presentation Type of Induction: Pitocin and Amniotomy Vaginal Delivery Information Procedure Performed: Spontaneous Vaginal Delivery Surgeon/Practitioner: Rosemary Monge Date of Procedure: 09/15/24 Pre-Procedure Diagnosis: induced hypertension, 37 weeks 3 days Post-Procedure Diagnosis: induced hypertension, 37 weeks 3 days Type of anesthesia: Epidural Estimated Blood Loss: 200cc Time of Delivery: 12:39 Findings Description of procedure: Patient began pushing and delivered the head in the LUBA presentation. The head was delivered atraumatically and a loose nuchal cord ?1 was identified and easily reduced over the infant's headx 2 The anterior and posterior shoulders delivered without complication followed by the rest of the and the was placed on the maternal abdomen. Delayed cord clamping was employed for approximately 60 seconds. Cord was clamped and cut and gentle traction was applied to the cord and the placenta delivered spontaneously immediately following it was noted to be intact with three-vessel cord. The perineum and vagina were inspected and noted to have a small 1st degree laceration. This was repaired with a 2-0 vicryl. EBL was 200cc. Patient and tolerated delivery well. Procedure findings: viable male scores 8/8 Renny Presentation: Vertex Amniotic Membrane Rupture Type: Artificial Amniotic Fluid Description: Clear Placental Delivery Description: Spontaneous Placenta Disposition: [facility] Specimen collected: No Cord Vessel Description: 3 Vessels Cord Entanglement: Around neck x 2, loose Nuchal Cord Compression: Without compression A Gender: Male (1 minute): 8 (5 minute): 8 Delayed Cord Clamping: Yes Invoicing Machine Operator verifier operator: No Post Vaginal Deli Medications given after delivery: IV Pitocin Episiotomy Description: None Laceration: 1st degree Complication Complications: No Multi Select Codes Urinary/Genital Urinary/Genital CPT Codes: 29061 Vaginal Delivery [facility]
[2024-09-15] MEDS: Oxytocin 15 Units/NS 250ml 15 UNITS/250 ML IV.SOLN 83 UNITS IV (12:59)
[2024-09-15] MEDS: Acetaminophen 500 MG Tablet 1000 MG PO (15:31)
[2024-09-15] MEDS: Ibuprofen 600 MG Tablet PO (20:04)
[2024-09-16] VITALS (17 sets, daily range): BP systolic 129–173; BP diastolic 78–87; PULSE 79–190; RESP 16–18; TEMP 36.6–36.9; O2SAT 80–98
[2024-09-16] MEDS: Acetaminophen 500 MG Tablet 1000 MG PO ×3 (00:44→18:33)
[2024-09-16] MEDS: Ibuprofen 600 MG Tablet PO ×3 (04:10→16:31)
--- NOTE | 2024-09-16 09:27 | PCM.PN.OB ---
Subjective Subjective Patient doing well without complaints. Tolerating PO. Ambulating and voiding without difficulty. feeding well. Denies chest pain, shortness of breath, calf pain/swelling, fevers, chills, lightheadedness. Objective Data Objective Data Vital Signs: Vital Signs Temp Pulse Resp BP Pulse Ox O2 Del Method 97.8 F 91 18 133/78 H 96 Room Air 09/16/24 07:49 09/16/24 07:50 09/16/24 07:49 09/16/24 07:49 09/16/24 07:50 09/16/24 07:49 Oxygen Delivery Method Room Air Weight: 224 lb Body Mass Index (BMI) 36.1 Intake & Output: Intake and Output for Last 24 Hours 09/14/24 09/15/24 09/16/24 23:59 23:59 23:59 Intake Total 514.77 / 514.77 2491.90 / 2491.90 Output Total 2600 / 2600 Balance 514.77 / 514.77 -108.10 / -108.10 Lab / Micro Data 09/14/24 14:35 09/14/24 14:35 ROS Constitutional Constitutional: Reports systems reviewed and no addt'l complaints, except as documented Cardiovascular Cardiovascular: Reports systems reviewed and no addt'l complaints, except as documented Respiratory/Chest Respiratory/Chest: Reports systems reviewed and no addt'l complaints, except as documented Gastrointestinal Gastrointestinal: Reports systems reviewed and no addt'l complaints, except as documented Physical Exam Const alert, oriented x3 and no apparent distress HEENT Head and Scalp: atraumatic Resp normal respiratory effort GI soft to palpation and non-tender Bimanual Exam - Vag & Uterus: uterus non-tender Uterus Palpation: uterus fundus firm (below Umbilicus) Assessment & Plan (1) Vaginal delivery: COMMENT: JV- baby boy Renny PLAN: Plan s/p PPD # 1 1. routine post delivery care 2. breast feeding- support given 3. rh positive 4. rubella immune
[2024-09-16] MEDS: Senna/Docusate Sodium 1 Tablet PO (10:33)
--- NOTE | 2024-09-16 17:56 | NURSING ---
patient seems very overwhelmed and emotional, dc teaching not done or discussed at this time.
[2024-09-17] MEDS: Ibuprofen 600 MG Tablet PO ×2 (00:13→12:20)
[2024-09-17 03:13] VITALS: BP 138/87; PULSE 80; TEMP 36.8; O2SAT 97
[2024-09-17 03:14] VITALS: BP 138/87; PULSE 82; RESP 16; TEMP 36.8; O2SAT 97
[2024-09-17 08:02] VITALS: BP 143/86; PULSE 80; RESP 16; TEMP 37
[2024-09-17] MEDS: Acetaminophen 500 MG Tablet 1000 MG PO (08:41)
[2024-09-17] MEDS: Benzocaine/Lanolin/Aloe Vera 85 GM Spray 1 SPRAY TOPICAL (08:42)
--- NOTE | 2024-09-17 09:11 | PCM.PN.CNM ---
Subjective Subjective Patient doing well without complaints. Tolerating PO. Ambulating and voiding without difficulty. Feeding well. Denies chest pain, shortness of breath, calf pain/swelling, fevers, chills, lightheadedness. Objective Data Objective Data Vital Signs: Vital Signs Temp Pulse Resp BP Pulse Ox O2 Del Method 98.6 F 80 16 143/86 H 97 Room Air 09/17/24 08:02 09/17/24 08:02 09/17/24 08:02 09/17/24 08:02 09/17/24 03:14 09/17/24 03:14 Oxygen Delivery Method Room Air Weight: 224 lb Body Mass Index (BMI) 36.1 Intake & Output: Intake and Output for Last 24 Hours 09/15/24 09/16/24 09/17/24 23:59 23:59 23:59 Intake Total 2491.90 / 2491.90 Output Total 2600 / 2600 Balance -108.10 / -108.10 Lab / Micro Data 09/14/24 14:35 09/14/24 14:35 Physical Exam Const alert, oriented x3 and no apparent distress HEENT Head and Scalp: atraumatic Resp normal respiratory effort GI soft to palpation and non-tender Bimanual Exam - Vag & Uterus: uterus non-tender Uterus Palpation: uterus fundus firm (below Umbilicus) Assessment & Plan (1) Vaginal delivery: COMMENT: JV- baby boy Renny (2) Encounter for induction of labor: COMMENT: Pre eclampsia. BP stable pp PLAN: follow up 1-2 week in office for bp check. no medications. (3) Anxiety and depression: COMMENT: Stopped taking meds about 6mo ago, feeling increased anxiety since becoming . restart prozac PLAN: Plan s/p PPD # 2 1. routine post delivery care 2. breast feeding- support given 3. rh positive 4. rubella immune 5. d/c home today
--- NOTE | 2024-09-17 09:13 | PCM.DC.SUM ---
Providers Date of Admission: 09/14/24 Primary Care Physician: Dr. Willam Ramirez MD Reason For Visit: VAGINAL Diagnosis Discharge Diagnosis (1) Vaginal delivery: Status: Acute Code(s): O80 - Encounter for full-term uncomplicated delivery (2) Encounter for induction of labor: Status: Acute Code(s): Z34.90 - Encounter for supervision of normal , unspecified, unspecified trimester Plan: follow up 1-2 week in office for bp check. no medications. (3) Anxiety and depression: Status: Acute Code(s): F41.9 - Anxiety disorder, unspecified; F32.A - Depression, unspecified Plan s/p PPD # 2 1. routine post delivery care 2. breast feeding- support given 3. rh positive 4. rubella immune 5. d/c home today Medications at Discharge Home Medications docosahexaenoic acid 200 mg capsule ( DHA) 1 mg PO DAILY 02/19/24 doxylamine succinate 25 mg tablet (Unisom (doxylamine)) 25 mg PO QHS PRN sleep 02/19/24 promethazine 12.5 mg tablet 12.5 mg PO Q6H PRN nausea and vomiting #90 tabs 07/06/24 famotidine 20 mg tablet (Pepcid) 20 mg PO BID #60 tabs 09/02/24 Hospital Course Operations None Procedures None Summary of Care Provided Minutes Spent on Discharge: 10 Hospital Course: pt presented for iol for pre-e resulting in with normal pp course. Weight / BMI Weight Weight: 224 lb Body Mass Index (BMI) 36.1 ABG / Lab / Microbiology Data 09/14/24 14:35 09/14/24 14:35 D/C Instructions Discharge Diet: No restrictions Discharge Activity: May Not Drive and May Shower May resume sexual activity in: 6 weeks Weight Bearing Status: Full weight bearing Call your doctor if your incision/area has: Sudden Increased Bleeding, Increased Pain/ Swelling and Foul Smelling Discharge Call your doctor if you observe: Fever of 101 or Higher, Numbness or Tingling, Change in Color, Inability to urinate, Inability to have a bowel movement, Using more than 1 pad per hour, Shortness of breath, Dizziness, Fainting spells, Chest pain, Calf discomfort and Uncontrolled pain DC O2, CPAP, BIPAP Needs Home O2 Discharge instructions: No Please Follow Up With: Rosemary Monge DO When: 6 weeks , please call office to make an appointment. Congratulations on the of your baby! Meaningful Use Info Meaningful Use Meaningful Use Diagnoses (Choose all that apply): None applicable Ischemic Stroke Statin Dosing Therapy Reference: STATIN DOSE THERAPY REFERENCE: * Patients > 75 years receive moderate or high dose statin therapy. * Patients 75 years or YOUNGER should receive HIGH intensity statin dose unless contraindicated. You will be required to document reason for non-treatment if statin daily dose does not meet guidelines. HIGH DOSE STATIN THERAPY DAILY Atorvastatin > than or = to 40 mg Rosuvastatin > than or = to 20 mg Amlodipine + Atorvastatin > than or = to 2.5/40 mg Ezetimibe + Simvastatin 10/80 mg Simvastatin 80mg Discharge Plan Admission Admit Date/Time: 09/14/24 16:10 Attending Provider: Rosemary Monge Primary Care Provider: Willam Ramirez Discharge Orders/Prescriptions Prescriptions: No Action DHA 200 mg capsule 1 mg PO DAILY Unisom (doxylamine) 25 mg tablet 25 mg PO QHS PRN (Reason: sleep) promethazine 12.5 mg tablet 12.5 mg PO Q6H PRN (Reason: nausea and vomiting) Qty: 90 4RF famotidine [Pepcid] 20 mg tablet 20 mg PO BID Qty: 60 6RF Referrals / Follow Up: Willam Ramirez MD [Primary Care Provider] - Disposition Disposition (needs filled in before D/C Order can be placed): Home, Self Care
[2024-09-17 11:55] VITALS: BP 137/78; PULSE 94
[2024-09-17 11:56] VITALS: TEMP 36.6
[2024-09-17 12:22] VITALS: BP 137/78; PULSE 94; RESP 17; TEMP 36.6
--- NOTE | 2024-09-21 10:25 | NURSING ---
Here for consult on Friday09/17/24, follow up phone call questions asked. Patient states she is doing well, only minimal pain. Taking Tylenol and Ibuprofen for discomfort. States her bleeding is minimal. Denies any problems with headaches, visual changes, flu like symptoms, or baby blues. Patient states is going ok and her milk is in, see notes for details. Denies any questions or concerns at this time.
--- NOTE | 2024-09-21 13:03 | CASEMGMT ---
Social Work Assessment Labor and Delivery Unit Patient Address: [address] [place] [address] Phone number: [phone] Date of Referral: 09/15/24 Time of Referral:? 1618 Referred By: Dr. Monge Date of Intervention: ?09/17/24? Time of Intervention:? 1120 Reason for Referral:? anxiety, depression Sw completed chart review and acknowledges social work consult due to maternal mental health history. Sw presented to bedside and introduced self to mother of baby (MOB- Chani) and father of baby (FOB- Raul). Sw explained reason for sw involvement and completed psychosocial assessment. History obtained from: medical records, MOB and FOB Household composition: Currently residing in the family home is MOB, FOB and baby when ready for discharge. Parents report their home is safe and secure, denying any problems. Patient's parent/guardian status:?MOB and FOB state that they have been together for 4 years after knowing each other for while. MOB states that her parents were friends with FOB's parents. No problems reported regarding domestic violence or intimate partner violence. Medical History: KOMAL is 29 year old female who is 1, para 0- now 1 following labor and delivery of . MOB received routine care during with [facility] during . MOB presented to hospital ? Educational Status:? Financial Status: Supplies:?? Childcare/Caregiver(s):? Transportation:?? Programs/Agencies Involved: ??? Children Services/Legal Issues:??? Behavioral Health Issues: ??Mental Health History:??? Substance Use History:?? Family History:? Drug Screens: ?? Family/Social Stressors:? Support Systems: Depression/Shaken Baby/Safe Sleeping:? ASSESSMENT:? Safe Plan of Care for related to substance use:? PLAN:? No other services requested or indicated. MOB and baby to be discharged when medically ready. Parents were provided literature regarding: signs and symptoms of baby blues and mood and anxiety disorders, Help Me Grow, shaken baby prevention, ABCs of safe sleep and a list of county resources that are available for them should any needs present themselves.
--- NOTE | 2024-09-22 14:47 | CASEMGMT ---
Social Work Labor and Delivery Unit Patient Address:[address] [place] [address] Phone number: [phone] Date and Time of Referral:? 09/15/24, 1618 Referred By: Dr. Monge Date and time of intervention:?09/17/24, 1100 Reason for Referral:?? anxiety, depression Sw completed chart review and acknowledges social work consult due to maternal mental health history. Sw presented to bedside and introduced self to mother of baby (KOMAL- Chani) and father of baby (FOB- Raul). Sw explained reason for sw involvement and completed psychosocial assessment. Informant:?? Medical record, MOB and FOB History:? KOMAL is 29 year old female who is 1, para 0- now 1 following labor and delivery of . KOMAL received routine care during with Ralph. KOMAL presented to hospital and delivered baby at 37 weeks via vaginal delivery on 09/15/24. Baby boy, named Renny Niño, was born weighing 7lb 13oz with apgars of 8 and 8 at one and five minutes of life, respectfully. KOMAL is breast feeding baby, and is struggling to do so, but is utilizing help and support from . Baby will be followed by Dr. Vicente for pediatrics. Parents have been together for 4 years after knowing each other through their parents. Parents live together, and state that they have no housing concerns. baby to be included in residence when ready for discharge. Parents have obtained all necessary baby supplies, including: car seat, safe sleep space, clothes, diapers and wipes. KOMAL and BENJY have both finished high school and have obtained some college education. BENJY is employed as a solid waste truck driver. KOMAL is unemployed and will be the primary caregiver to baby. Both parents have mental health history. FOB has been diagnosed with anxiety and is prescribed citalopram by his PCP to help manage his mental health symptoms. KOMAL states that she has history of anxiety and depression and is not prescribed any medications. KOMAL has been extremely anxious throughout her labor and into her recovery. KOMAL has been tearful, overwhelmed and anxious. While meeting with parents sw talked to parents about signs and symptoms of baby blues and depression and anxiety. KOMAL reports that she was anxious most of yesterday, but feels more calm today. Sw asked MOB what triggers her anxiety/ depression. MOB reports that she is a people person and does not like to let people down, so when she is unable to do things that someone has asked of her she feels bad and down on herself. Sw explained and encouraged MOB to set boundaries now that she is a parent. Sw stated that it is okay for MOB to give herself adam and to now put herself and her baby first. MOB expressed understanding, and FOB stated that he would try to help MOB do these things. FOB stated that if MOB were to struggle with anxiety or depression he would be able to recognize those things. Sw also explained to FOB that he may also be more at risk for experiencing the blues or symptoms due to his mental health history as well. MOB and FOB stated that they will do their best to help and support one another during this time period. Sw educated parents to shaken baby prevention and ABCs of safe sleep, parents express understanding. Assessment:? MOB and baby admitted following labor and delivery of . MOB was laying in bed holding baby, who was fussy and crying throughout majority of conversation. Several times MOB attempted to feed baby, however he seemed distressed and crying when put to breast. During this time MOB was able to keep her composure, and then sw offered to get to come and help./ support MOB with feeds. During this time FOB was observed to be helpful and involved. Parents were talkative and receptive to meeting with sw. MOB and FOB expressed understanding of mental health signs and symptoms to be mindful of going into this period. Parents have obtained all necessary baby items and have natural supports in place. Plan:??? MOB and baby discharged when medically ready, and following support provided by . Information provided to parents regarding: Help Me Grow, shaken baby prevention, ABCs of safe sleep, signs and symptoms of baby blues and depression and anxiety, and list of county resources. No further needs requested or indicated. Skylar Molina, FAMILY ASSESSMENT WORKER, VISUAL JOURNALIST
== END 2024-09-17 12:45 | disposition home or self-care (01) | DRG 807 ==
LOC: WPOUT 16:14 → WP 16:14
PROVIDERS: Advanced Practice Midwife; Admitting Provider Obstetrics & Gynecology; PCP Family Medicine; Referring Provider Obstetrics & Gynecology; Visit Provider Obstetrics & Gynecology
DX: O14.94 Unspecified pre-eclampsia, complicating childbirth (principal); O70.0 First degree perineal laceration during delivery; O13.4 Gestational [pregnancy-induced] hypertension without significant proteinuria, complicating childbirth; O69.81X0 Labor and delivery complicated by cord around neck, without compression, not applicable or unspecified; Z37.0 Single live birth; O99.344 Other mental disorders complicating childbirth; F32.A Depression, unspecified; F41.9 Anxiety disorder, unspecified; O99.214 Obesity complicating childbirth; E66.9 Obesity, unspecified; Z3A.37 37 weeks gestation of pregnancy; Z79.899 Other long term (current) drug therapy
CPT/HCPCS: 59025; 59050; 82565; 82570; 84156; 84450; 84460; 84550; 85027; 86780; 86850; 86900; 86901; 99221; A4216; G0378; J2405

== ENCOUNTER 2024-09-21 17:20 | Outpatient (CLI) | payer BC, SELFPAY ==
[2024-09-21] VITALS (14 sets, daily range): BP systolic 124–139; BP diastolic 78–84; PULSE 82–91; RESP 16–20; TEMP 36.7–36.9; O2SAT 97–98; BMI 32.9
[2024-09-21 18:23] LABS: Hematocrit 33.3 % (37-47); Hemoglobin 10.5 g/dL (12.0-15.0); Mean Corp Hgb Conc 31.5 g/dL (32-36); Mean Corpuscular Hgb 25.2 pg (27.0-32.0); Mean Corpuscular Volume 79.9 fL (81-99); Mean Platelet Vol. 9.5 fl (6.2-12.0); Platelet Count 485 K/mm3 (150-450); RBC Distribution Width CV 14.7 % (11.6-14.6); Red Blood Count 4.17 M/mm3 (4.2-5.4); White Blood Count 12.4 K/mm3 (4.4-11.0)
[2024-09-21 19:44] LABS: AST(SGOT) 25 U/L (<=31); Alanine Aminotransfer ALT/SGPT 26 U/L (<=34); Creatinine, Serum 0.56 mg/dL (0.70-1.20); EST Glomerular Filtration Rate 126 (>60); Estimated Creatinine Clearance 169.93 ml/min (50-250); Uric Acid 4.4 mg/dL (2.6-6.0)
[2024-09-21] MEDS: Acetaminophen 500 MG Tablet 1000 MG PO (20:26)
--- NOTE | 2024-09-21 20:35 | NURSING ---
This RN updated provider Natacha Peraza CNM on patient status of patient reporting sinus headache, blood pressures all within normal limits and labs WNL. Ruled out for preeclampsia.
--- NOTE | 2024-09-22 07:41 | OB.TRI.PN ---
Progress Notes Date of Service: 09/21/24 Progress Note: Patient presents for triage evaluation secondary to headache- delivered 6 days ago. Hx of PIH. Took Motrin earlier in the day, but nothing since. Assessment and plan: pre e labs evaluated and normal, blood pressures reassuring. Reassuring patient discharged to home to follow-up at visit. See problem list details for additional plan information. Laboratory Studies: Laboratory Tests 09/21/24 Range/Units 18:05 WBC 12.4 H (4.4-11.0) K/mm3 RBC 4.17 L (4.2-5.4) M/mm3 Hgb 10.5 L (12.0-15.0) g/dL Hct 33.3 L (37-47) % MCV 79.9 L (81-99) fL MCH 25.2 L (27.0-32.0) pg MCHC 31.5 L (32-36) g/dL RDW Std Deviation 42.0 (35.1-43.9) fl RDW Coeff of Godfrey 14.7 H (11.6-14.6) % Plt Count 485 H (150-450) K/mm3 MPV 9.5 (6.2-12.0) fl Creatinine 0.56 L (0.70-1.20) mg/dL Estim Creat Clear Calc 169.93 (50-250) ml/min Est GFR (MDRD) Non-Af 126 (>60) Uric Acid 4.4 (2.6-6.0) mg/dL AST 25 (<=31) U/L ALT 26 (<=34) U/L Charges/Coding Multi Select Codes Visit Charges Office Visit/Consults: 66903 OV L3 Est 20min Assessment & Plan (1) headache: PLAN: pre e labs normal BPs reassuring tylenol 1,000mg encourage rest RTO for BP check in 2 days (2) Vaginal delivery: COMMENT: JV- baby boy [place] (3) Encounter for induction of labor: COMMENT: Pre eclampsia. BP stable pp (4) Supervision of normal : QUALIFIERS: Normal : normal first Trimester: third trimester Qualified Code(s): Z34.03 - Encounter for supervision of normal first , third trimester COMMENT: PRR, , MARIIA 10/03/24, : Raul (5) : QUALIFIERS: Weeks of gestation: 36 weeks Qualified Code(s): Z3A.36 - 36 weeks gestation of COMMENT: GBS neg, Discuss genetic/carrier testing, normal anatomy (6) Anxiety and depression: COMMENT: Stopped taking meds about 6mo ago, feeling increased anxiety since becoming . restart prozac (7) Vaginal bleeding affecting early :
== END 2024-09-21 20:34 | disposition home or self-care (01) ==
LOC: WPOUT 17:22 → WP 17:22
PROVIDERS: PCP Family Medicine; Referring Provider Advanced Practice Midwife; Visit Provider Advanced Practice Midwife
DX: O99.893 Other specified diseases and conditions complicating puerperium (principal); R51.9 Headache, unspecified; O13.5 Gestational [pregnancy-induced] hypertension without significant proteinuria, complicating the puerperium; O99.345 Other mental disorders complicating the puerperium; F32.A Depression, unspecified; F41.9 Anxiety disorder, unspecified
CPT/HCPCS: 36415; 82565; 84450; 84460; 84550; 85027; 99221; G0378